=== PATIENT | male | born 1950 | race Caucasian/White ===

== ENCOUNTER 2020-12-21 21:56 | Inpatient (IN) | payer MEDICARE, OTHER ==
[~2020-12-21] VITALS: Ht 170.2 cm; Wt 120.0 kg
[2020-12-22] MEDS ORDERED: ondansetron/PF 4mg/2ml inj IV PRN (02:25)
[2020-12-22] MEDS ORDERED: magnesium hydroxide 30ml (MOM) UD suspension PO PRN (02:25)
[2020-12-22] MEDS ORDERED: morphine 2 MG/ML inj. syringe IV PRN ×2 (02:25)
[2020-12-22] MEDS ORDERED: mag hydrox/Alum hydrox/simeth 30ml oral suspension PO PRN (02:25)
[2020-12-22] MEDS ORDERED: acetaminophen 325mg tablet PO PRN ×2 (02:25)
[2020-12-22] MEDS ORDERED: HYDROcodone/acetaminophen 5mg/325mg tablet PO PRN (02:25)
[2020-12-22] MEDS ORDERED: ASPI-611 PO (04:46)
[2020-12-22] MEDS ORDERED: ACET-3068 PO (04:46)
[2020-12-22] MEDS ORDERED: OMEP-50 PO (04:46)
[2020-12-22] MEDS ORDERED: FLUO-167 PO (04:46)
[2020-12-22] MEDS ORDERED: RISP1TAB98 PO (04:46)
[2020-12-22] MEDS ORDERED: LOSA50TA64 PO (04:46)
[2020-12-22 06:00] VITALS: BP 124/67
--- NOTE | 2020-12-22 06:05 | NUR ---
received report from marga hair
[2020-12-22] MEDS: docusate sod 100mg capsule PO SCH ×2 (08:00→20:28)
[2020-12-22] MEDS ORDERED: magnesium 4gm in 100ml NS 100 ML IV PRN (09:20)
[2020-12-22] MEDS ORDERED: magnesium Cl slow-release 64mg tablet PO PRN (09:20)
[2020-12-22] MEDS ORDERED: potassium Cl 40MEQ/1/2NS 520ml 520 ML IV PRN (09:20)
[2020-12-22] MEDS ORDERED: potassium Cl 20 mEq SR tablet PO PRN ×2 (09:20)
[2020-12-22] MEDS: HYDROcodone/acetaminophen 10/325mg tab PO PRN ×2 (09:30→20:51)
[2020-12-22 10:00] VITALS: BP 125/76
[2020-12-22] MEDS ORDERED: PROP60TA19 PO (10:50)
[2020-12-22 10:56] LABS: BASOPHILS % (AUTO) 0.2 % (0-1); EOSINOPHILS % (AUTO) 0 % (0-6); HEMATOCRIT 45.4 % (42.0-52.0); HEMOGLOBIN 15.7 g/dl (14.0-17.9); LYMPHOCYTES # (AUTO) 1.3 X10'3 (1.1-4.8); LYMPHOCYTES % (AUTO) 21.5 % (21-51); MEAN CORPUSCULAR HEMOGLOBIN 32.2 PG (27.0-31.0); MEAN CORPUSCULAR HGB CONC 34.7 g/dL (33.0-36.5); MEAN PLATELET VOLUME 10.1 FL (7.4-10.4); MONOCYTES # (AUTO) 0.7 X10'3 (0-0.9); MONOCYTES % (AUTO) 11.6 % (2-12); NEUTROPHILS # (AUTO) 4.1 X10'3 (1.8-7.7); NEUTROPHILS % (AUTO) 66.7 % (42-75); PLATELET COUNT 202 X10'3 (140-440); RED BLOOD COUNT 4.88 X10'6 (4.70-6.10); RED CELL DISTRIBUTION WIDTH 14.3 % (11.5-14.5); WHITE BLOOD COUNT 6.2 X10'3 (4.5-11.0)
[2020-12-22 11:03] LABS: D-DIMER 0.51 MG/L FEU (0-0.50)
[2020-12-22 11:12] LABS: ALANINE AMINOTRANSFERASE 46 U/L (12-78); ALBUMIN 2.9 G/DL (3.4-5.0); ALBUMIN/GLOBULIN RATIO 0.6 (1.1-1.5); ALKALINE PHOSPHATASE 59 IU/L (46-116); ANION GAP 10 (8-16); ASPARTATE AMINO TRANSFERASE 43 U/L (10-37); BILIRUBIN,TOTAL 0.8 MG/DL (0.1-1.0); BLOOD UREA NITROGEN 41 MG/DL (7-18); BUN/CREATININE RATIO 29.5 (5.4-32.0); C-REACTIVE PROTEIN 8.66 MG/DL (0.0-0.5); CALCIUM 8.7 MG/DL (8.5-10.1); CHLORIDE 102 MMOL/L (99-107); CREATININE 1.39 MG/DL (0.60-1.10); GLUCOSE 121 MG/DL (70-104); LACTATE DEHYDROGENASE 312 U/L (85-227); MAGNESIUM 2.7 MG/DL (1.5-2.4); PHOSPHORUS 3.3 MG/DL (2.3-4.5); SODIUM 137 MMOL/L (135-145); TOTAL PROTEIN 7.8 G/DL (6.4-8.2); eGFR 51 ML/MIN
[2020-12-22] MEDS: dexamethasone sod phosphate 10mg/ml inj IV SCH ×2 (11:54→20:28)
[2020-12-22] MEDS: enoxaparin 40mg/0.4ml syringe SUBCUT SCH (11:57)
[2020-12-22 14:00] VITALS: BP 120/83
[2020-12-22 18:30] VITALS: BP 156/82
--- NOTE | 2020-12-22 18:30 | NUR ---
Assumed care of pt received report from Blanca BARLOW.
--- NOTE | 2020-12-22 18:35 | NUR ---
gave report to marga gil
[2020-12-22] MEDS: K and/or MAG REPLACEMENT MC SCH (20:00)
[2020-12-22] MEDS: risperiDONE 0.5mg tablet PO SCH (20:28)
[2020-12-22 22:00] VITALS: BP 146/89
[2020-12-23 02:00] VITALS: BP 118/70
[2020-12-23 06:10] VITALS: BP 130/77
--- NOTE | 2020-12-23 06:30 | NUR ---
Patient in room [facility] 4011. I have received report from Marla BARLOW and had the opportunity to ask questions and assume patient care.
--- NOTE | 2020-12-23 06:31 | NUR ---
Report to Abril BARLOW.
[2020-12-23 07:58] LABS: BASOPHILS % (AUTO) 0.1 % (0-1); EOSINOPHILS % (AUTO) 0 % (0-6); HEMATOCRIT 46.7 % (42.0-52.0); HEMOGLOBIN 15.8 g/dl (14.0-17.9); LYMPHOCYTES # (AUTO) 1.3 X10'3 (1.1-4.8); LYMPHOCYTES % (AUTO) 19.1 % (21-51); MEAN CORPUSCULAR HEMOGLOBIN 32.1 PG (27.0-31.0); MEAN CORPUSCULAR HGB CONC 33.9 g/dL (33.0-36.5); MEAN CORPUSCULAR VOLUME 94.7 FL (78-98); MEAN PLATELET VOLUME 9.7 FL (7.4-10.4); MONOCYTES # (AUTO) 0.7 X10'3 (0-0.9); MONOCYTES % (AUTO) 9.8 % (2-12); NEUTROPHILS # (AUTO) 4.8 X10'3 (1.8-7.7); PLATELET COUNT 214 X10'3 (140-440); RED BLOOD COUNT 4.93 X10'6 (4.70-6.10); RED CELL DISTRIBUTION WIDTH 14.1 % (11.5-14.5); WHITE BLOOD COUNT 6.8 X10'3 (4.5-11.0)
[2020-12-23] MEDS: K and/or MAG REPLACEMENT MC SCH ×2 (08:00→18:46)
[2020-12-23] MEDS: docusate sod 100mg capsule PO SCH ×2 (08:00→19:15)
--- NOTE | 2020-12-23 08:04 | NUR ---
report given to светлана BARLOW
--- NOTE | 2020-12-23 08:08 | NUR ---
Patient in room [facility]TH[facility] 4011A. I have received report from YEN LOREDO and had the opportunity to ask questions and assume patient care.
[2020-12-23 08:39] LABS: ALANINE AMINOTRANSFERASE 43 U/L (12-78); ALBUMIN 2.9 G/DL (3.4-5.0); ALBUMIN/GLOBULIN RATIO 0.6 (1.1-1.5); ALKALINE PHOSPHATASE 57 IU/L (46-116); ANION GAP 8 (8-16); ASPARTATE AMINO TRANSFERASE 41 U/L (10-37); BILIRUBIN,TOTAL 0.7 MG/DL (0.1-1.0); BLOOD UREA NITROGEN 40 MG/DL (7-18); BUN/CREATININE RATIO 31.7 (5.4-32.0); C-REACTIVE PROTEIN 4.39 MG/DL (0.0-0.5); CHLORIDE 104 MMOL/L (99-107); CREATININE 1.26 MG/DL (0.60-1.10); GLUCOSE 123 MG/DL (70-104); MAGNESIUM 2.9 MG/DL (1.5-2.4); PHOSPHORUS 4.3 MG/DL (2.3-4.5); POTASSIUM 4.1 MMOL/L (3.5-5.1); SODIUM 137 MMOL/L (135-145); TOTAL PROTEIN 7.5 G/DL (6.4-8.2); eGFR 57 ML/MIN
[2020-12-23 08:56] LABS: D-DIMER 0.39 MG/L FEU (0-0.50)
[2020-12-23] MEDS: losartan 50mg tablet PO SCH (09:12)
[2020-12-23] MEDS: aspirin 81mg, enteric-coated 1 TAB TABLET.DR PO SCH (09:12)
[2020-12-23] MEDS: pantoprazole 40mg Tablet.DR PO SCH (09:13)
[2020-12-23] MEDS: propranolol 40mg tablet PO SCH (09:13)
[2020-12-23] MEDS: FLUoxetine 20mg capsule PO SCH (09:14)
[2020-12-23] MEDS: enoxaparin 40mg/0.4ml syringe SUBCUT SCH (09:15)
[2020-12-23] MEDS: dexamethasone sod phosphate 10mg/ml inj IV SCH ×2 (09:19→19:20)
[2020-12-23 10:00] VITALS: BP 154/85
[2020-12-23 14:00] VITALS: BP 126/64
[2020-12-23] MEDS ORDERED: iohexol 350MG/ML 100ml bottle IV ONE (14:46)
[2020-12-23 18:00] VITALS: BP 140/83
--- NOTE | 2020-12-23 18:50 | NUR ---
Problems reprioritized. Patient report given, questions answered & plan of care reviewed with YEN SEE.
[2020-12-23] MEDS: HYDROcodone/acetaminophen 10/325mg tab PO PRN (19:20)
[2020-12-23] MEDS: risperiDONE 0.5mg tablet PO SCH (20:26)
[2020-12-23 22:00] VITALS: BP 121/60
[2020-12-24 02:00] VITALS: BP 120/62
[2020-12-24 06:00] VITALS: BP 119/63
--- NOTE | 2020-12-24 06:24 | NUR ---
Problems reprioritized. Patient report given, questions answered & plan of care reviewed with Darcie BARLOW.
--- NOTE | 2020-12-24 06:31 | NUR ---
Patient in room [facility]TH[facility] 4011B. I have received report from YEN SEE and had the opportunity to ask questions and assume patient care.
[2020-12-24 07:06] LABS: BASOPHILS % (AUTO) 0.1 % (0-1); EOSINOPHILS % (AUTO) 0 % (0-6); HEMOGLOBIN 15.7 g/dl (14.0-17.9); LYMPHOCYTES # (AUTO) 1.5 X10'3 (1.1-4.8); LYMPHOCYTES % (AUTO) 16.7 % (21-51); MEAN CORPUSCULAR HEMOGLOBIN 32.2 PG (27.0-31.0); MEAN CORPUSCULAR HGB CONC 34.2 g/dL (33.0-36.5); MEAN PLATELET VOLUME 9.3 FL (7.4-10.4); MONOCYTES # (AUTO) 0.9 X10'3 (0-0.9); MONOCYTES % (AUTO) 10.2 % (2-12); NEUTROPHILS # (AUTO) 6.7 X10'3 (1.8-7.7); PLATELET COUNT 250 X10'3 (140-440); RED BLOOD COUNT 4.89 X10'6 (4.70-6.10); RED CELL DISTRIBUTION WIDTH 14.3 % (11.5-14.5); WHITE BLOOD COUNT 9.1 X10'3 (4.5-11.0)
[2020-12-24] MEDS: docusate sod 100mg capsule PO SCH ×2 (07:08→20:59)
--- NOTE | 2020-12-24 07:10 | NUR ---
PAGED VASCULAR ABOUT STUDY THAT WAS ORDERED YESTERDAY.....ALSO PAGED LAST NIGHT BEFORE I LEFT, AROUND 1830...
[2020-12-24 07:14] LABS: D-DIMER 0.41 MG/L FEU (0-0.50)
[2020-12-24 07:36] LABS: ALANINE AMINOTRANSFERASE 55 U/L (12-78); ALBUMIN 2.9 G/DL (3.4-5.0); ALBUMIN/GLOBULIN RATIO 0.6 (1.1-1.5); ALKALINE PHOSPHATASE 62 IU/L (46-116); ANION GAP 9 (8-16); ASPARTATE AMINO TRANSFERASE 50 U/L (10-37); BILIRUBIN,TOTAL 0.8 MG/DL (0.1-1.0); BLOOD UREA NITROGEN 40 MG/DL (7-18); BUN/CREATININE RATIO 29.9 (5.4-32.0); C-REACTIVE PROTEIN 2.17 MG/DL (0.0-0.5); CHLORIDE 106 MMOL/L (99-107); CREATININE 1.34 MG/DL (0.60-1.10); GLUCOSE 121 MG/DL (70-104); MAGNESIUM 2.7 MG/DL (1.5-2.4); PHOSPHORUS 4.3 MG/DL (2.3-4.5); POTASSIUM 4.2 MMOL/L (3.5-5.1); SODIUM 141 MMOL/L (135-145); TOTAL CARBON DIOXIDE 25.6 MMOL/L (24-32); TOTAL PROTEIN 7.4 G/DL (6.4-8.2); eGFR 53 ML/MIN
[2020-12-24] MEDS: aspirin 81mg, enteric-coated 1 TAB TABLET.DR PO SCH (07:45)
[2020-12-24] MEDS: pantoprazole 40mg Tablet.DR PO SCH (07:45)
[2020-12-24] MEDS: FLUoxetine 20mg capsule PO SCH (07:46)
[2020-12-24] MEDS: propranolol 40mg tablet PO SCH (07:47)
[2020-12-24] MEDS: losartan 50mg tablet PO SCH (07:48)
[2020-12-24] MEDS: enoxaparin 40mg/0.4ml syringe SUBCUT SCH (07:49)
[2020-12-24] MEDS: dexamethasone sod phosphate 10mg/ml inj IV SCH ×2 (07:51→20:57)
[2020-12-24] MEDS: K and/or MAG REPLACEMENT MC SCH ×2 (08:00→20:00)
[2020-12-24 11:00] VITALS: BP 120/67
[2020-12-24 18:00] VITALS: BP 119/71
--- NOTE | 2020-12-24 18:57 | NUR ---
Problems reprioritized. Patient report given, questions answered & plan of care reviewed with YEN ROSA.
[2020-12-24] MEDS: risperiDONE 0.5mg tablet PO SCH (20:57)
[2020-12-24] MEDS: HYDROcodone/acetaminophen 10/325mg tab PO PRN (21:12)
[2020-12-24 22:00] VITALS: BP 124/72
[2020-12-25 02:00] VITALS: BP 145/87
[2020-12-25 06:00] VITALS: BP 133/58
--- NOTE | 2020-12-25 06:30 | NUR ---
Problems reprioritized. Patient report given, questions answered & plan of care reviewed with YEN López.
[2020-12-25] MEDS: dexamethasone sod phosphate 10mg/ml inj IV SCH ×2 (07:52→19:59)
[2020-12-25] MEDS: pantoprazole 40mg Tablet.DR PO SCH (07:52)
[2020-12-25] MEDS: losartan 50mg tablet PO SCH (07:52)
[2020-12-25] MEDS: FLUoxetine 20mg capsule PO SCH (07:52)
[2020-12-25] MEDS: aspirin 81mg, enteric-coated 1 TAB TABLET.DR PO SCH (07:52)
[2020-12-25] MEDS: enoxaparin 40mg/0.4ml syringe SUBCUT SCH ×2 (07:53→19:59)
[2020-12-25] MEDS: propranolol 40mg tablet PO SCH (07:56)
[2020-12-25] MEDS: docusate sod 100mg capsule PO SCH ×2 (08:00→19:59)
[2020-12-25] MEDS: K and/or MAG REPLACEMENT MC SCH ×2 (08:00→20:00)
[2020-12-25 08:41] LABS: D-DIMER 0.84 MG/L FEU (0-0.50)
[2020-12-25 08:43] LABS: BASOPHILS % (AUTO) 0.1 % (0-1); EOSINOPHILS % (AUTO) 0.1 % (0-6); HEMOGLOBIN 15.3 g/dl (14.0-17.9); LYMPHOCYTES # (AUTO) 1.2 X10'3 (1.1-4.8); LYMPHOCYTES % (AUTO) 15.7 % (21-51); MEAN CORPUSCULAR HEMOGLOBIN 32.1 PG (27.0-31.0); MEAN CORPUSCULAR VOLUME 94.5 FL (78-98); MEAN PLATELET VOLUME 9.7 FL (7.4-10.4); MONOCYTES # (AUTO) 0.7 X10'3 (0-0.9); MONOCYTES % (AUTO) 9.7 % (2-12); NEUTROPHILS # (AUTO) 5.7 X10'3 (1.8-7.7); NEUTROPHILS % (AUTO) 74.4 % (42-75); PLATELET COUNT 238 X10'3 (140-440); RED BLOOD COUNT 4.77 X10'6 (4.70-6.10); RED CELL DISTRIBUTION WIDTH 14.2 % (11.5-14.5); WHITE BLOOD COUNT 7.6 X10'3 (4.5-11.0)
[2020-12-25 08:56] LABS: ALANINE AMINOTRANSFERASE 83 U/L (12-78); ALBUMIN 2.8 G/DL (3.4-5.0); ALBUMIN/GLOBULIN RATIO 0.7 (1.1-1.5); ALKALINE PHOSPHATASE 60 IU/L (46-116); ANION GAP 9 (8-16); ASPARTATE AMINO TRANSFERASE 60 U/L (10-37); BILIRUBIN,TOTAL 0.7 MG/DL (0.1-1.0); BLOOD UREA NITROGEN 40 MG/DL (7-18); BUN/CREATININE RATIO 32.8 (5.4-32.0); CALCIUM 8.9 MG/DL (8.5-10.1); CHLORIDE 107 MMOL/L (99-107); CREATININE 1.22 MG/DL (0.60-1.10); GLUCOSE 121 MG/DL (70-104); POTASSIUM 4.3 MMOL/L (3.5-5.1); SODIUM 142 MMOL/L (135-145); TOTAL CARBON DIOXIDE 26.2 MMOL/L (24-32); TOTAL PROTEIN 6.9 G/DL (6.4-8.2); eGFR 59 ML/MIN
[2020-12-25 09:02] LABS: C-REACTIVE PROTEIN 1.08 MG/DL (0.0-0.5); MAGNESIUM 2.4 MG/DL (1.5-2.4); PHOSPHORUS 3.9 MG/DL (2.3-4.5)
[2020-12-25 12:39] VITALS: BP 148/92
[2020-12-25 14:00] VITALS: BP 127/72
[2020-12-25 18:00] VITALS: BP 129/77
[2020-12-25] MEDS: HYDROcodone/acetaminophen 10/325mg tab PO PRN (19:59)
[2020-12-25] MEDS: risperiDONE 0.5mg tablet PO SCH (20:01)
[2020-12-25 22:00] VITALS: BP 143/87
[2020-12-26 02:00] VITALS: BP 136/76
[2020-12-26 06:00] VITALS: BP 148/78
--- NOTE | 2020-12-26 06:32 | NUR ---
Problems reprioritized. Patient report given, questions answered & plan of care reviewed with YEN Russell.
[2020-12-26] MEDS: docusate sod 100mg capsule PO SCH ×3 (08:00→20:13)
[2020-12-26] MEDS: K and/or MAG REPLACEMENT MC SCH ×2 (08:00→20:00)
[2020-12-26] MEDS: propranolol 40mg tablet PO SCH (08:24)
[2020-12-26] MEDS: FLUoxetine 20mg capsule PO SCH (08:24)
[2020-12-26] MEDS: pantoprazole 40mg Tablet.DR PO SCH (08:24)
[2020-12-26] MEDS: aspirin 81mg, enteric-coated 1 TAB TABLET.DR PO SCH (08:24)
[2020-12-26] MEDS: losartan 50mg tablet PO SCH (08:26)
[2020-12-26] MEDS: enoxaparin 40mg/0.4ml syringe SUBCUT SCH ×2 (08:26→20:09)
[2020-12-26] MEDS: dexamethasone sod phosphate 10mg/ml inj IV SCH ×2 (08:27→20:09)
[2020-12-26 08:48] LABS: BASOPHILS % (AUTO) 0.2 % (0-1); EOSINOPHILS % (AUTO) 0 % (0-6); HEMATOCRIT 47.7 % (42.0-52.0); HEMOGLOBIN 16.4 g/dl (14.0-17.9); LYMPHOCYTES # (AUTO) 1.5 X10'3 (1.1-4.8); LYMPHOCYTES % (AUTO) 16.9 % (21-51); MEAN CORPUSCULAR HEMOGLOBIN 32.2 PG (27.0-31.0); MEAN CORPUSCULAR HGB CONC 34.3 g/dL (33.0-36.5); MEAN CORPUSCULAR VOLUME 93.9 FL (78-98); MEAN PLATELET VOLUME 9.5 FL (7.4-10.4); MONOCYTES # (AUTO) 0.9 X10'3 (0-0.9); MONOCYTES % (AUTO) 9.7 % (2-12); NEUTROPHILS # (AUTO) 6.6 X10'3 (1.8-7.7); NEUTROPHILS % (AUTO) 73.2 % (42-75); PLATELET COUNT 268 X10'3 (140-440); RED BLOOD COUNT 5.08 X10'6 (4.70-6.10); RED CELL DISTRIBUTION WIDTH 13.9 % (11.5-14.5)
[2020-12-26] MEDS: HYDROcodone/acetaminophen 10/325mg tab PO PRN ×2 (08:48→20:09)
[2020-12-26 09:06] LABS: ALANINE AMINOTRANSFERASE 102 U/L (12-78); ALBUMIN/GLOBULIN RATIO 0.7 (1.1-1.5); ALKALINE PHOSPHATASE 68 IU/L (46-116); ANION GAP 12 (8-16); ASPARTATE AMINO TRANSFERASE 57 U/L (10-37); BILIRUBIN,TOTAL 0.9 MG/DL (0.1-1.0); BLOOD UREA NITROGEN 38 MG/DL (7-18); BUN/CREATININE RATIO 32.2 (5.4-32.0); C-REACTIVE PROTEIN 0.59 MG/DL (0.0-0.5); CHLORIDE 105 MMOL/L (99-107); CREATININE 1.18 MG/DL (0.60-1.10); GLUCOSE 115 MG/DL (70-104); MAGNESIUM 2.5 MG/DL (1.5-2.4); PHOSPHORUS 3.6 MG/DL (2.3-4.5); POTASSIUM 4.2 MMOL/L (3.5-5.1); SODIUM 140 MMOL/L (135-145); TOTAL CARBON DIOXIDE 22.6 MMOL/L (24-32); TOTAL PROTEIN 7.2 G/DL (6.4-8.2); eGFR 61 ML/MIN
[2020-12-26 10:00] VITALS: BP 129/70
--- NOTE | 2020-12-26 10:32 | NUR ---
Initial: Pt admit for respiratory failure and COVID PNA. Currently on a heart healthy diet, initially with 25-50% PO intake however improving with recent 75-100% PO intake meeting estimated nutrient needs for IBW +10% as current documented wt isn't scaled. Noted mechanical soft chop food (SB6) has been added to diet order d/t pt with no teeth per order. LBM 12/25 documented with diarrhea. Pt with routine bowel care available however being held. No nutrition intervention implemented at this time. Will continue to follow and make recommendations as appropriate. Recommendations: 1) Advance to regular diet; SB6 texture given no teeth per diet order; monitor need for further texture modification 2) Monitor need for additional protein 3) Bowel care PRN; consider anti-diarrheal if diarrhea persists 4) Scaled weight this admit; weekly scaled weights thereafter Addendum: 12/26/20 at [address] Amended: Links added.
[2020-12-26 14:00] VITALS: BP 123/79
[2020-12-26 18:00] VITALS: BP 130/74
--- NOTE | 2020-12-26 18:14 | NUR ---
Patient in room [facility] 4011. I have received report from YEN Russell and had the opportunity to ask questions and assume patient care.
[2020-12-26] MEDS: risperiDONE 0.5mg tablet PO SCH (20:09)
[2020-12-26 22:00] VITALS: BP 125/67
[2020-12-27 02:00] VITALS: BP 115/68
[2020-12-27 06:00] VITALS: BP 134/73
--- NOTE | 2020-12-27 06:34 | NUR ---
Problems reprioritized. Patient report given, questions answered & plan of care reviewed with YEN Villa.
--- NOTE | 2020-12-27 06:34 | NUR ---
Patient in room [facility]TH[facility] 4011B. I have received report from YEN SANABRIA and had the opportunity to ask questions and assume patient care.
[2020-12-27] MEDS: K and/or MAG REPLACEMENT MC SCH ×2 (08:00→19:57)
[2020-12-27] MEDS: dexamethasone sod phosphate 10mg/ml inj IV SCH ×2 (08:32→19:56)
[2020-12-27] MEDS: FLUoxetine 20mg capsule PO SCH (08:32)
[2020-12-27] MEDS: aspirin 81mg, enteric-coated 1 TAB TABLET.DR PO SCH (08:33)
[2020-12-27] MEDS: docusate sod 100mg capsule PO SCH ×2 (08:33→19:57)
[2020-12-27] MEDS: losartan 50mg tablet PO SCH (08:33)
[2020-12-27] MEDS: enoxaparin 40mg/0.4ml syringe SUBCUT SCH ×2 (08:33→19:57)
[2020-12-27] MEDS: pantoprazole 40mg Tablet.DR PO SCH (08:33)
[2020-12-27] MEDS: propranolol 40mg tablet PO SCH (08:37)
[2020-12-27] MEDS: HYDROcodone/acetaminophen 10/325mg tab PO PRN ×2 (08:38→20:08)
[2020-12-27 08:47] LABS: BASOPHILS % (AUTO) 0.1 % (0-1); EOSINOPHILS % (AUTO) 0 % (0-6); HEMATOCRIT 45.9 % (42.0-52.0); HEMOGLOBIN 16.1 g/dl (14.0-17.9); LYMPHOCYTES # (AUTO) 1.7 X10'3 (1.1-4.8); LYMPHOCYTES % (AUTO) 16.8 % (21-51); MEAN CORPUSCULAR HEMOGLOBIN 32.3 PG (27.0-31.0); MEAN CORPUSCULAR VOLUME 92.2 FL (78-98); MEAN PLATELET VOLUME 9.4 FL (7.4-10.4); MONOCYTES % (AUTO) 10.1 % (2-12); NEUTROPHILS # (AUTO) 7.2 X10'3 (1.8-7.7); PLATELET COUNT 276 X10'3 (140-440); RED BLOOD COUNT 4.98 X10'6 (4.70-6.10); RED CELL DISTRIBUTION WIDTH 13.8 % (11.5-14.5); WHITE BLOOD COUNT 9.9 X10'3 (4.5-11.0)
[2020-12-27 08:51] LABS: ALANINE AMINOTRANSFERASE 114 U/L (12-78); ALBUMIN 2.7 G/DL (3.4-5.0); ALBUMIN/GLOBULIN RATIO 0.7 (1.1-1.5); ALKALINE PHOSPHATASE 64 IU/L (46-116); ANION GAP 11 (8-16); ASPARTATE AMINO TRANSFERASE 50 U/L (10-37); BILIRUBIN,TOTAL 0.8 MG/DL (0.1-1.0); BLOOD UREA NITROGEN 35 MG/DL (7-18); BUN/CREATININE RATIO 30.4 (5.4-32.0); C-REACTIVE PROTEIN 0.22 MG/DL (0.0-0.5); CALCIUM 8.6 MG/DL (8.5-10.1); CHLORIDE 105 MMOL/L (99-107); CREATININE 1.15 MG/DL (0.60-1.10); GLUCOSE 118 MG/DL (70-104); MAGNESIUM 2.3 MG/DL (1.5-2.4); PHOSPHORUS 3.7 MG/DL (2.3-4.5); POTASSIUM 4.5 MMOL/L (3.5-5.1); SODIUM 141 MMOL/L (135-145); TOTAL PROTEIN 6.6 G/DL (6.4-8.2); eGFR 63 ML/MIN
[2020-12-27 09:13] LABS: D-DIMER 0.77 MG/L FEU (0-0.50)
[2020-12-27 10:00] VITALS: BP 142/80
[2020-12-27 14:00] VITALS: BP 112/46
[2020-12-27 18:00] VITALS: BP 120/69
--- NOTE | 2020-12-27 18:41 | NUR ---
Problems reprioritized. Patient report given, questions answered & plan of care reviewed with YEN NOLASCO.
[2020-12-27] MEDS: risperiDONE 0.5mg tablet PO SCH (20:01)
[2020-12-27 22:00] VITALS: BP 130/76
[2020-12-28 02:00] VITALS: BP 152/83
[2020-12-28 06:00] VITALS: BP 139/68
--- NOTE | 2020-12-28 06:13 | NUR ---
Patient in room [facility]TH[facility] 4011B. I have received report from YEN NOLASCO and had the opportunity to ask questions and assume patient care.
[2020-12-28] MEDS: docusate sod 100mg capsule PO SCH ×2 (08:00→20:06)
[2020-12-28] MEDS: K and/or MAG REPLACEMENT MC SCH ×2 (08:00→20:00)
[2020-12-28] MEDS: propranolol 40mg tablet PO SCH (08:07)
[2020-12-28] MEDS: enoxaparin 40mg/0.4ml syringe SUBCUT SCH ×2 (08:08→20:10)
[2020-12-28] MEDS: losartan 50mg tablet PO SCH (08:08)
[2020-12-28] MEDS: pantoprazole 40mg Tablet.DR PO SCH (08:08)
[2020-12-28] MEDS: dexamethasone sod phosphate 10mg/ml inj IV SCH ×2 (08:08→20:08)
[2020-12-28] MEDS: FLUoxetine 20mg capsule PO SCH (08:08)
[2020-12-28] MEDS: aspirin 81mg, enteric-coated 1 TAB TABLET.DR PO SCH (08:08)
[2020-12-28] MEDS: HYDROcodone/acetaminophen 10/325mg tab PO PRN ×2 (08:14→20:08)
[2020-12-28 08:44] LABS: ALANINE AMINOTRANSFERASE 125 U/L (12-78); ALBUMIN 2.7 G/DL (3.4-5.0); ALBUMIN/GLOBULIN RATIO 0.7 (1.1-1.5); ALKALINE PHOSPHATASE 67 IU/L (46-116); ANION GAP 11 (8-16); ASPARTATE AMINO TRANSFERASE 45 U/L (10-37); BILIRUBIN,TOTAL 0.8 MG/DL (0.1-1.0); BLOOD UREA NITROGEN 34 MG/DL (7-18); BUN/CREATININE RATIO 30.9 (5.4-32.0); C-REACTIVE PROTEIN 0.22 MG/DL (0.0-0.5); CALCIUM 8.6 MG/DL (8.5-10.1); CHLORIDE 105 MMOL/L (99-107); GLUCOSE 110 MG/DL (70-104); LACTATE DEHYDROGENASE 278 U/L (85-227); MAGNESIUM 2.3 MG/DL (1.5-2.4); PHOSPHORUS 3.8 MG/DL (2.3-4.5); POTASSIUM 4.4 MMOL/L (3.5-5.1); SODIUM 140 MMOL/L (135-145); TOTAL CARBON DIOXIDE 24.4 MMOL/L (24-32); TOTAL PROTEIN 6.8 G/DL (6.4-8.2); eGFR 66 ML/MIN
[2020-12-28 08:52] LABS: BASOPHILS % (AUTO) 0.1 % (0-1); EOSINOPHILS % (AUTO) 0 % (0-6); HEMATOCRIT 46.9 % (42.0-52.0); HEMOGLOBIN 16.3 g/dl (14.0-17.9); LYMPHOCYTES # (AUTO) 1.5 X10'3 (1.1-4.8); LYMPHOCYTES % (AUTO) 15.7 % (21-51); MEAN CORPUSCULAR HEMOGLOBIN 32.2 PG (27.0-31.0); MEAN CORPUSCULAR HGB CONC 34.7 g/dL (33.0-36.5); MEAN CORPUSCULAR VOLUME 92.9 FL (78-98); MEAN PLATELET VOLUME 9.5 FL (7.4-10.4); NEUTROPHILS # (AUTO) 7.1 X10'3 (1.8-7.7); NEUTROPHILS % (AUTO) 74.2 % (42-75); PLATELET COUNT 268 X10'3 (140-440); RED BLOOD COUNT 5.04 X10'6 (4.70-6.10); WHITE BLOOD COUNT 9.6 X10'3 (4.5-11.0)
[2020-12-28 09:05] LABS: D-DIMER 1.04 MG/L FEU (0-0.50)
[2020-12-28 10:00] VITALS: BP 113/66
[2020-12-28 14:00] VITALS: BP 115/62
[2020-12-28 18:00] VITALS: BP 127/74
--- NOTE | 2020-12-28 18:33 | NUR ---
Problems reprioritized. Patient report given, questions answered & plan of care reviewed with YEN NOLASCO.
[2020-12-28] MEDS: risperiDONE 0.5mg tablet PO SCH (20:07)
[2020-12-28 22:00] VITALS: BP 137/66
[2020-12-29 02:00] VITALS: BP 126/67
[2020-12-29 06:00] VITALS: BP 116/70
--- NOTE | 2020-12-29 06:16 | NUR ---
Patient in room [facility]TH[facility] 4011B. I have received report from YEN NOLASCO and had the opportunity to ask questions and assume patient care.
[2020-12-29] MEDS: aspirin 81mg, enteric-coated 1 TAB TABLET.DR PO SCH (07:40)
[2020-12-29] MEDS: dexamethasone sod phosphate 10mg/ml inj IV SCH ×2 (07:40→20:20)
[2020-12-29] MEDS: enoxaparin 40mg/0.4ml syringe SUBCUT SCH ×2 (07:40→20:20)
[2020-12-29] MEDS: losartan 50mg tablet PO SCH (07:41)
[2020-12-29] MEDS: FLUoxetine 20mg capsule PO SCH (07:41)
[2020-12-29] MEDS: propranolol 40mg tablet PO SCH (07:41)
[2020-12-29] MEDS: pantoprazole 40mg Tablet.DR PO SCH (07:41)
[2020-12-29] MEDS: HYDROcodone/acetaminophen 10/325mg tab PO PRN ×2 (07:48→20:22)
[2020-12-29] MEDS: docusate sod 100mg capsule PO SCH ×2 (07:53→20:20)
[2020-12-29] MEDS: K and/or MAG REPLACEMENT MC SCH ×2 (08:00→20:00)
[2020-12-29 08:31] LABS: ALANINE AMINOTRANSFERASE 128 U/L (12-78); ALBUMIN 2.5 G/DL (3.4-5.0); ALBUMIN/GLOBULIN RATIO 0.6 (1.1-1.5); ALKALINE PHOSPHATASE 67 IU/L (46-116); ANION GAP 10 (8-16); ASPARTATE AMINO TRANSFERASE 41 U/L (10-37); BILIRUBIN,TOTAL 0.8 MG/DL (0.1-1.0); BLOOD UREA NITROGEN 36 MG/DL (7-18); C-REACTIVE PROTEIN 0.15 MG/DL (0.0-0.5); CALCIUM 8.4 MG/DL (8.5-10.1); CHLORIDE 106 MMOL/L (99-107); CREATININE 1.09 MG/DL (0.60-1.10); GLUCOSE 104 MG/DL (70-104); LACTATE DEHYDROGENASE 292 U/L (85-227); MAGNESIUM 2.3 MG/DL (1.5-2.4); PHOSPHORUS 3.7 MG/DL (2.3-4.5); POTASSIUM 4.5 MMOL/L (3.5-5.1); SODIUM 139 MMOL/L (135-145); TOTAL CARBON DIOXIDE 23.2 MMOL/L (24-32); TOTAL PROTEIN 6.6 G/DL (6.4-8.2); eGFR 67 ML/MIN
[2020-12-29 09:00] LABS: D-DIMER 0.67 MG/L FEU (0-0.50)
[2020-12-29 10:00] VITALS: BP 135/66
[2020-12-29 10:49] LABS: BASOPHILS % (AUTO) 0.1 % (0-1); EOSINOPHILS % (AUTO) 0.1 % (0-6); HEMATOCRIT 48.6 % (42.0-52.0); HEMOGLOBIN 16.2 g/dl (14.0-17.9); LYMPHOCYTES % (AUTO) 8.6 % (21-51); MEAN CORPUSCULAR HEMOGLOBIN 31.5 PG (27.0-31.0); MEAN CORPUSCULAR HGB CONC 33.3 g/dL (33.0-36.5); MEAN CORPUSCULAR VOLUME 94.7 FL (78-98); MEAN PLATELET VOLUME 9.7 FL (7.4-10.4); MONOCYTES # (AUTO) 0.8 X10'3 (0-0.9); MONOCYTES % (AUTO) 6.9 % (2-12); NEUTROPHILS # (AUTO) 10.1 X10'3 (1.8-7.7); NEUTROPHILS % (AUTO) 84.3 % (42-75); PLATELET COUNT 328 X10'3 (140-440); RED BLOOD COUNT 5.13 X10'6 (4.70-6.10)
[2020-12-29 14:00] VITALS: BP 118/63
[2020-12-29 18:00] VITALS: BP 134/64
--- NOTE | 2020-12-29 18:32 | NUR ---
Problems reprioritized. Patient report given, questions answered & plan of care reviewed with YEN GIRON.
--- NOTE | 2020-12-29 18:35 | NUR ---
Patient in room [facility] 4011. I have received report from YEN Villa and had the opportunity to ask questions and assume patient care. Patient sitting up in bed, just finished dinner and has not complaints at this time. I will continue to monitor.
[2020-12-29] MEDS: risperiDONE 0.5mg tablet PO SCH (20:19)
[2020-12-29 22:00] VITALS: BP 117/64
[2020-12-30 02:00] VITALS: BP 121/59
[2020-12-30 06:30] VITALS: BP 122/75
--- NOTE | 2020-12-30 06:50 | NUR ---
Problems reprioritized. Patient report given, questions answered & plan of care reviewed with YEN Best.
[2020-12-30] MEDS: docusate sod 100mg capsule PO SCH (07:58)
[2020-12-30] MEDS: FLUoxetine 20mg capsule PO SCH (07:58)
[2020-12-30] MEDS: aspirin 81mg, enteric-coated 1 TAB TABLET.DR PO SCH (07:58)
[2020-12-30] MEDS: pantoprazole 40mg Tablet.DR PO SCH (07:58)
[2020-12-30] MEDS: enoxaparin 40mg/0.4ml syringe SUBCUT SCH (07:59)
[2020-12-30] MEDS: losartan 50mg tablet PO SCH (07:59)
[2020-12-30] MEDS: dexamethasone sod phosphate 10mg/ml inj IV SCH (07:59)
[2020-12-30] MEDS: K and/or MAG REPLACEMENT MC SCH (08:00)
[2020-12-30] MEDS: propranolol 40mg tablet PO SCH (08:00)
--- NOTE | 2020-12-30 08:20 | NUR ---
O2 Sat at rest on room air:_84__% If below 89%: Recovery O2 Sat at rest on __5_LPM:_90__%:___% via n/c (mask/nasal cannula, etc..) No further documentation is necessary. If O2 Sat did not drop below 89% on room air,ambulate patient on room air. O2 Sat while ambulating on room air:___% Recovery O2 Sat while ambulating on ___LPM:___% No further documentation is necessary. If patient does not drop below 89% while ambulating, he/she does not qualify for home O2.
[2020-12-30 08:38] LABS: BASOPHILS % (AUTO) 0.1 % (0-1); EOSINOPHILS % (AUTO) 0.1 % (0-6); HEMATOCRIT 46.3 % (42.0-52.0); HEMOGLOBIN 15.9 g/dl (14.0-17.9); LYMPHOCYTES # (AUTO) 1.6 X10'3 (1.1-4.8); LYMPHOCYTES % (AUTO) 15.7 % (21-51); MEAN CORPUSCULAR HEMOGLOBIN 32.1 PG (27.0-31.0); MEAN CORPUSCULAR HGB CONC 34.4 g/dL (33.0-36.5); MEAN CORPUSCULAR VOLUME 93.1 FL (78-98); MONOCYTES # (AUTO) 0.9 X10'3 (0-0.9); MONOCYTES % (AUTO) 9.3 % (2-12); NEUTROPHILS # (AUTO) 7.5 X10'3 (1.8-7.7); NEUTROPHILS % (AUTO) 74.8 % (42-75); PLATELET COUNT 280 X10'3 (140-440); RED BLOOD COUNT 4.97 X10'6 (4.70-6.10); RED CELL DISTRIBUTION WIDTH 13.9 % (11.5-14.5); WHITE BLOOD COUNT 10.1 X10'3 (4.5-11.0)
[2020-12-30 09:10] LABS: ALANINE AMINOTRANSFERASE 123 U/L (12-78); ALBUMIN 2.6 G/DL (3.4-5.0); ALBUMIN/GLOBULIN RATIO 0.7 (1.1-1.5); ALKALINE PHOSPHATASE 71 IU/L (46-116); ANION GAP 10 (8-16); ASPARTATE AMINO TRANSFERASE 30 U/L (10-37); BILIRUBIN,TOTAL 0.8 MG/DL (0.1-1.0); BLOOD UREA NITROGEN 33 MG/DL (7-18); BUN/CREATININE RATIO 32.4 (5.4-32.0); C-REACTIVE PROTEIN 0.15 MG/DL (0.0-0.5); CALCIUM 8.4 MG/DL (8.5-10.1); CHLORIDE 105 MMOL/L (99-107); CREATININE 1.02 MG/DL (0.60-1.10); GLUCOSE 96 MG/DL (70-104); LACTATE DEHYDROGENASE 298 U/L (85-227); MAGNESIUM 2.2 MG/DL (1.5-2.4); PHOSPHORUS 3.8 MG/DL (2.3-4.5); POTASSIUM 4.2 MMOL/L (3.5-5.1); SODIUM 140 MMOL/L (135-145); TOTAL CARBON DIOXIDE 24.9 MMOL/L (24-32); TOTAL PROTEIN 6.5 G/DL (6.4-8.2); eGFR 72 ML/MIN
[2020-12-30] MEDS ORDERED: BENZ-16 PO (09:12)
[2020-12-30] MEDS ORDERED: ALBU8.5H17 INH (09:12)
[2020-12-30] MEDS ORDERED: PRED10TA23 PO (09:12)
[2020-12-30] MEDS ORDERED: ASPI-611 PO (09:12)
--- NOTE | 2020-12-30 09:28 | NUR ---
Paged CM to notify of discharge order and need for HH set up and home 02.
--- NOTE | 2020-12-30 09:31 | NUR ---
CM called. They are working on both HH and [facility] 02 delivered to hospital.
[2020-12-30 09:55] LABS: D-DIMER 0.49 MG/L FEU (0-0.50)
[2020-12-30 10:00] VITALS: BP 141/85
--- NOTE | 2020-12-30 10:40 | NUR ---
Reassessment: Pt PO remains adequate ~100% most SB6/heart healthy meals meeting needs. LBM 12/29. No further nutrition intervention at this time. Will continue to monitor. Recommendations: 1) Advance to regular diet;SB6 texture given no teeth per diet order; monitor need for further texture modification 2) Bowel care per rx 3) Scaled weight this admit; weekly scaled weights thereafter Addendum: 12/30/20 at [address] Amended: Links added.
--- NOTE | 2020-12-30 11:30 | NUR ---
DISCHARGE NOTE: Reviewed discharge paperwork with pt. Educated on 02 use and 02 delivered by Pam to pt. in hospital. Extra n/c provided. Reviewed discharge medication and possible ASE. Pt. did not have any questions but had ample opportunities to ask questions. Pt. aware CM setting up HH for him and that they will be in touch. Pt. knows to come back to ER if any complications and to f/u with his PCP. Both PIV removed, cannulas intact, pressure bandages applied, no s/sx bleeding noted. Pt.'s here to p/u pt in private car to take him home. Pt. given written information on COVID and isolation and managing symptoms. Pt. aware he needs to remain on isolation for 12 more days. aware as well.
== END 2020-12-30 11:45 | disposition home health service (06) | DRG 177 ==
LOC: UNDOADMIN 12-22 02:12 → ORTHO 4S 12-22 02:12
PROVIDERS: ADMIT Internal Medicine; ATTEND Family Medicine
PROC: 5A09357 Assistance with Respiratory Ventilation, Less than 24 Consecutive Hours, Continuous Positive Airway Pressure (ICD-10-PCS; principal; 2020-12-22)
PROC: 5A0935A Assistance with Respiratory Ventilation, Less than 24 Consecutive Hours, High Flow/Velocity Cannula (ICD-10-PCS; 2020-12-23)
PROC: B32T1ZZ Computerized Tomography (CT Scan) of Left Pulmonary Artery using Low Osmolar Contrast (ICD-10-PCS; 2020-12-23)
PROC: B3201ZZ Computerized Tomography (CT Scan) of Thoracic Aorta using Low Osmolar Contrast (ICD-10-PCS; 2020-12-23)
PROC: B32S1ZZ Computerized Tomography (CT Scan) of Right Pulmonary Artery using Low Osmolar Contrast (ICD-10-PCS; 2020-12-23)
PROC: 5A09357 Assistance with Respiratory Ventilation, Less than 24 Consecutive Hours, Continuous Positive Airway Pressure (ICD-10-PCS; 2020-12-24)
PROC: 5A0935A Assistance with Respiratory Ventilation, Less than 24 Consecutive Hours, High Flow/Velocity Cannula (ICD-10-PCS; 2020-12-24)
PROC: 5A09357 Assistance with Respiratory Ventilation, Less than 24 Consecutive Hours, Continuous Positive Airway Pressure (ICD-10-PCS; 2020-12-25)
PROC: 5A0935A Assistance with Respiratory Ventilation, Less than 24 Consecutive Hours, High Flow/Velocity Cannula (ICD-10-PCS; 2020-12-25)
PROC: 5A09357 Assistance with Respiratory Ventilation, Less than 24 Consecutive Hours, Continuous Positive Airway Pressure (ICD-10-PCS; 2020-12-26)
PROC: 5A09357 Assistance with Respiratory Ventilation, Less than 24 Consecutive Hours, Continuous Positive Airway Pressure (ICD-10-PCS; 2020-12-27)
PROC: 5A09357 Assistance with Respiratory Ventilation, Less than 24 Consecutive Hours, Continuous Positive Airway Pressure (ICD-10-PCS; 2020-12-28)
PROC: 5A09357 Assistance with Respiratory Ventilation, Less than 24 Consecutive Hours, Continuous Positive Airway Pressure (ICD-10-PCS; 2020-12-29)
DX: U07.1 COVID-19 (principal); J12.82 Pneumonia due to coronavirus disease 2019; J96.01 Acute respiratory failure with hypoxia; N18.30 Chronic kidney disease, stage 3 unspecified; I12.9 Hypertensive chronic kidney disease with stage 1 through stage 4 chronic kidney disease, or unspecified chronic kidney disease; G47.30 Sleep apnea, unspecified; K21.9 Gastro-esophageal reflux disease without esophagitis; Z88.0 Allergy status to penicillin; Z79.899 Other long term (current) drug therapy
CPT/HCPCS: 36415; 71045; 71275; 80053; 83615; 83735; 84100; 84145; 84484; 85025; 85379; 86140; 87081; 93970; 94760; G0378; J1100; J1650; Q9967